=== PATIENT | male | born 1970 | race Two or more races ===

== ENCOUNTER 2024-11-12 09:20 | Day surgery (SDC) | payer BC, SELFPAY ==
[2024-11-09 14:52] VITALS: BMI 25.0
[2024-11-12] VITALS (10 sets, daily range): BP systolic 112–144; BP diastolic 74–87; PULSE 48–63; RESP 9–18; TEMP 36.6–36.7; O2SAT 95–100; BMI 24.5
[2024-11-12] MEDS: fentaNYL CIT INJ 50 mCg/ML AMP 2ML (ASD USE ONLY) IVP (11:16)
[2024-11-12] MEDS: SODIUM CHLORIDE 0.9% 500 ML 500 ML 20 ML IV (11:16)
[2024-11-12] MEDS: MIDAZOLAM INJ 1 MG/ML VIAL 2 ML (ASD USE ONLY) 2 MG IVP (11:16)
== END 2024-11-12 12:14 | disposition home or self-care (01) ==
PROVIDERS: PCP Family Medicine; Referring Provider Specialist; Visit Provider Specialist
PROC: 0DBE8ZX Excision of Large Intestine, Via Natural or Artificial Opening Endoscopic, Diagnostic (ICD-10-PCS; CPT 45380; principal; 2024-11-12 10:15)
DX: Z12.11 Encounter for screening for malignant neoplasm of colon (principal); K64.9 Unspecified hemorrhoids; K62.1 Rectal polyp
CPT/HCPCS: 45380; J1200; J2250; J3010; J7999